=== PATIENT | male | born 1990 | race African-American/Black ===

== ENCOUNTER 2018-10-17 12:59 | Emergency (ER) | payer OTHER ==
[~2018-10-17] VITALS: Ht 180.3 cm; Wt 75.0 kg
[2018-10-17 13:06] VITALS: BP 126/65; TEMP 97.7
[2018-10-17 14:16] VITALS: PULSE 74
== END 2018-10-17 14:17 | disposition home or self-care (01) ==
LOC: COL.ER 12:59
DX: R09.1 Pleurisy (principal)